=== PATIENT | female | born 1955 | race Caucasian/White ===

== ENCOUNTER → 2024-08-31 13:11 | Outpatient (REF) | payer OTHER, SELFPAY | LOC: HWRAD 13:11 | PROVIDERS: ATTENDING PHYSICIAN Student in an Organized Health Care Education/Training Program | DX: M54.9 Dorsalgia, unspecified (principal) | CPT/HCPCS: 72074 ==

== ENCOUNTER → 2024-09-03 12:44 | Outpatient (REF) | payer OTHER, SELFPAY | LOC: HWRAD 12:44 | PROVIDERS: ATTENDING PHYSICIAN Student in an Organized Health Care Education/Training Program | DX: M79.661 Pain in right lower leg (principal) | CPT/HCPCS: 93970 ==

== ENCOUNTER 2024-09-29 09:44 | Emergency (ER) | payer OTHER, SELFPAY ==
[2024-09-29] VITALS (12 sets, daily range): BP systolic 137–181; BP diastolic 71–92; BMI 21.3
--- NOTE | 2024-09-29 09:57 | ED.GENMED ---
History of Present Illness
General
Chief Complaint: Change in Mental Status
Time Seen by Provider: 09/29/24 09:46
History of Present Illness
History of Present Illness:
Patient presents to the emergency department with altered mental status and headache. Patient is having issues with her memory and she is unsure how long her symptoms have been ongoing for. She apparently has been taking Macrobid for a UTI for the
past 3 days. Reportedly she has been seeing a new primary care doctor who have been adjusting her medications. She is on mirtazapine, propranolol, telmisartan. She complains of diffuse headache and nausea. She denies any abdominal pain or back
pain. Denies any chest pain or shortness of breath. Denies any focal weakness or numbness.
Past History
Past History
ED Past Medical History: None
ED Past Surgical History: None
Social History
Tobacco: Non-smoker
Alcohol: None
Drug: None
Personal:
Living: with family
Employment: Employed
Family History
Family History: Other (No family history of a hypercoagulable state); Negative Diabetes or Hypertension
Phy Exam
Physical Exam
Physical Exam:
GENERAL APPEARANCE: NAD, well developed/ well nourished
EYES lids/conjunctiva normal
EARS/NOSE/THROAT Mucous membranes moist, uvula midline without oral pharyngeal erythema, exudate or swelling
HEAD/NECK normocephalic atraumatic, neck is supple.
RESPIRATORY respiratory effort normal, speaks in full sentences, no accessory muscle use. Lungs clear to auscultation without rhonchi, wheezes, rales
CARDIAC Regular rate and rhythm, no edema.
ABDOMINAL Soft, ND/NT. No pulsatile masses on exam, rebound tenderness, Amaya sign or pain over Mcburney's point.
MUSCLES/EXTREMITIES No abnormal range of motion, no swelling.
SKIN Warm, pink and dry. No rashes
NEUROLOGICAL patient is awake and alert and oriented x 2. She is having issues with short-term memory loss. Speech is normal. 5 out of 5 strength in all extremities. Sensation intact to light touch throughout. Cranial nerves II through XII are
intact. No ataxia or dysmetria or nystagmus.
Course
Orders/Labs/Results
Orders:
Orders
09/29/24 09:53
Electrocardiogram (*1) Urgent
Reason for Study: Fatigue / Weakness
09/29/24 09:54
EKG- Treatment ONCE
Complete Blood Count/With Diff Urgent
Comprehensive Metabolic Panel Urgent
Troponin I Urgent
09/29/24 09:56
Troponin I Urgent
0.9% Sodium Chloride 1000 ml [Nss] 1,000 ml IV BOLUS
Ondansetron Injectable [Zofran] 4 mg IV NOW STA
09/29/24 09:57
CT Head W/o Iv Contrast Urgent
Comment:
Reason For Exam: altered mental status
Ondansetron Injectable [Zofran] 4 mg .ROUTE .STK-MED ONE
09/29/24 10:22
Metoclopramide [Reglan] 10 mg IV NOW STA
09/29/24 10:23
Metoclopramide [Reglan] 10 mg .ROUTE .STK-MED ONE
09/29/24 10:32
Lorazepam [Ativan] 2 mg .ROUTE .STK-MED ONE
09/29/24 10:34
Lorazepam [Ativan] 2 mg IV NOW STA
09/29/24 10:45
Nicardipine 40 mg/200 ml [Cardene] 40 mg in 200 ml IV PER PROTOCOL
Initial dose in mg/hr, then titrate:: 5
Titrate to keep:: SBP 140 - 160 mmHg
Titrate by mg/hr:: 2.5 mg/hr
Frequency of titrations (minutes):: 5-15 minutes
Maximum dose in mg/hr:: 15
Begin to taper infusion when:: Remained at goal for 2hrs
Taper by mg/hr:: 2.5 mg/hr
Frequency of taper (minutes) if patient maintains goal:: every 15-30 minutes
Taper to off?: Yes
If infusion off & no longer maintaining goal:: Contact Provider
09/29/24 10:50
Type+Screen Urgent
PTT Urgent
Prothrombin Time Urgent
Urinalysis Reflex To Culture Urgent
Date Specimen was Collected: 09/29/24
Time Specimen was Collected: 10:49
Abnormal Lab Results
09/29/24
09:54
RBC 5.43 H 10^6/uL
(4.20-5.40)
Hgb 16.1 H g/dL
(12.0-16.0)
Hct 47.5 H %
(37.0-47.0)
MPV 10.7 H fL
(7.4-10.4)
Absolute Neuts (auto) 7.1 H 10^3/uL
(1.4-6.5)
Absolute Lymphs (auto) 1.0 L 10^3/uL
(1.2-3.4)
Neutrophils % 83.5 H %
(42.2-75.2)
Lymphocytes % 11.5 L %
(20.5-51.1)
BUN 19 H mg/dl
(7-17)
Glucose 131 H mg/dl
(70-99)
ALT 41 H U/L
(0-35)
Alkaline Phosphatase 142 H U/L
(38-126)
09/29/24 09:54
09/29/24 09:54
Vital Signs
Initial and Last Documented VS:
Initial Vital Signs
Temp Pulse Resp BP Pulse Ox
98.2 F 70 18 174/92 100
09/29/24 09:46 09/29/24 09:46 09/29/24 09:46 09/29/24 09:46 09/29/24 09:46
Last Documented Vital Signs
Temp Pulse Resp BP Pulse Ox
98.2 F 70 19 181/83 99
09/29/24 09:46 09/29/24 10:00 09/29/24 10:00 09/29/24 10:00 09/29/24 10:00
*Critical Care Note
Total Time (30-74mins, 75-104mins- exclusive of procedures): 40
Update Note
Update Note:
Patient with generalized tonic-clonic seizure lasting approximately 1 minute. She received 2 mg of IV Ativan. Bring patient over for CT head now
CT head with multiple foci of intracranial bleeding with subarachnoid extension
patients BP is 140s/70s
[place] transfer center called
attempted to call son MOISÉS and daughter Padmini? listed in chart. Unable to reach
ED Attending Note
ED Attending Note
ED Attending Note:
Patient presents with headache, altered mental status, UTI. It is unclear exactly how long her symptoms have been going on for. She has no focal neurologic deficits but is having issues with her memory and some confusion. Blood pressure noted to
be elevated with a history of hypertension. She is afebrile without any meningeal signs on exam. Plan for CT head, labs, urinalysis. Differentials broad and includes infectious, metabolic, traumatic etiologies
-
Portions of this chart may have been created with voice recognition software.� Occasional wrong word or��sound alike� substitutions may have occurred due to the inherent limitations of voice recognition software.
Discharge Plan
Departure
Prescriptions:
No Action
propranolol 10 mg Tablet
20 mg PO DAILY
telmisartan 40 mg Tablet
40 mg PO DAILY
mirtazapine 15 mg Tablet
15 mg PO HS
gabapentin 100 mg Capsule
100 mg PO BID
rosuvastatin 5 mg Tablet
5 mg PO DAILY
nitrofurantoin monohyd/m-cryst 100 mg Capsule
100 mg PO BID
Rx Instructions:
take for 7 days starting 09/25/24
acetaminophen [Tylenol Ex Str Rapid Release] 500 mg Tablet
1,000 mg PO Q6HPRN PRN (Reason: mild pain)
Referrals:
Love Aguirre MD [Primary Care Provider] -
Interventions
Interventions:
*Risk Screen - Suicide Last Done: 09/29/24 09:49
*General Assessment Last Done: 09/29/24 09:49
*Neglect/Abuse Screening Last Done: 09/29/24 09:49
*ED- Fall Risk Assessment Last Done: 09/29/24 09:49
*ED COVID-19 Vaccine History Last Done: 09/29/24 09:49
ED- Neurological Assessment Last Done: 09/29/24 09:51
Discharge Date and Time
Print Language: SPANISH
[2024-09-29] MEDS: ZOFRAN 4 MG IV (10:00)
[2024-09-29] MEDS: NSS 1000 IV (10:01)
[2024-09-29 10:06] LABS: % Basophils 1.2 % (0-2); % Immature Granulocytes 0.4 % (0-0.5); % Lymphocytes 11.5 % (20.5-51.1); % Monocytes 3.4 % (1.7-9.3); % Neutrophils 83.5 % (42.2-75.2); Absolute Basophils 0.1 10^3/uL (0-0.2); Absolute Monocytes 0.3 10^3/uL (0.1-0.6); Absolute Neutrophils 7.1 10^3/uL (1.4-6.5); Hematocrit 47.5 % (37.0-47.0); Hemoglobin 16.1 g/dL (12.0-16.0); Mean Corp Hgb Conc. 33.9 g/dL (33.0-37.0); Mean Corpuscular Hgb 29.7 pg (27.0-31.0); Mean Corpuscular Volume 87.5 fL (81.0-99.0); Mean Platelet Volume 10.7 fL (7.4-10.4); Nucleated Red Blood Cells % 0 %; Platelet Count 310 10^3/uL (130-400); Red Blood Cell Count 5.43 10^6/uL (4.20-5.40); White Blood Cell Count 8.4 10^3/uL (4.8-10.8)
[2024-09-29 10:15] LABS: ALT (SGPT) 41 U/L (0-35); AST (SGOT) 30 U/L (14-36); Albumin 4.3 g/dl (3.5-5.0); Alkaline Phosphatase 142 U/L (38-126); Blood Urea Nitrogen 19 mg/dl (7-17); Calcium 9.6 mg/dl (8.4-10.2); Carbon Dioxide 25 mmol/L (22-30); Chloride 106 mmol/L (98-107); Estimated Creatinine Clearance 65 ml/min; Glucose 131 mg/dl (70-99); Potassium 4.8 mmol/L (3.5-5.1); Sodium 139 mmol/L (135-145); Total Bilirubin 0.5 mg/dl (0.2-1.3); eGFR > 60.00
[2024-09-29] MEDS: REGLAN 10 MG IV (10:24)
[2024-09-29 10:26] LABS: Troponin I < 0.012 ng/ml
--- NOTE | 2024-09-29 10:30 | PTCARENOTE ---
RN in room with pt getting urine sample. Pt placed on bed hernandez. Pt states 'my head hurts. I think I'm going to throw up'. Pt starts seizing. RN called for help. 1 PCT and [address] room[address] Sotomayor bedside. Pt placed on Oxygen 6L
NC. Pt starts bleeding from mouth a small amount. Pt suctioned for small amount of salvia and blood. Ativan 2mg IV given. See AUG. Seizure lasted about 1 minute. Seizure pads placed on bed. Pt taken to CT Scan STAT with RN and PCT. VSS.
Called placed to family by . Will continue to monitor.
[2024-09-29] MEDS: ATIVAN 2 MG IV ×2 (10:34→13:25)
[2024-09-29 11:10] LABS: Urine Albumin Negative (Neg - Trace); Urine Bilirubin Negative (Negative); Urine Character Clear (Clear); Urine Color Yellow; Urine Glucose Negative (Negative); Urine Ketone Negative (Negative); Urine Leukocyte Negative (Negative); Urine Nitrite Negative (Negative); Urine Occult Blood Negative (Negative); Urine Urobilinogen Negative (Neg - 1+)
[2024-09-29 11:31] LABS: APTT 29.5 Sec (23.4-35.0); PT 13.7 Sec (11.4-14.6)
[2024-09-29] MEDS: KEPPRA 2000 MG IV (11:57)
--- NOTE | 2024-09-29 12:14 | PTCARENOTE ---
Daughter bedside. Updated by Dr. Sotomayor. Will continue to monitor.
--- NOTE | 2024-09-29 13:28 | PTCARENOTE ---
[facility] here to discharge pt. Flight RN's requested Ativan to be given. Pt is restless and pulling at her IV and heart monitor. VTO given from [facility] for Ativan 2mg IV. Med given. See AUG. Pt transported on flight stretcher.
== END 2024-09-29 13:36 | disposition short-term general hospital (02) ==
LOC: EMR 09:44
PROVIDERS: EMERGENCY PHYSICIAN Emergency Medicine; PRIMARYCARE PHYSICIAN Internal Medicine
DX: R51.9 Headache, unspecified (principal); R11.0 Nausea; N39.0 Urinary tract infection, site not specified; R41.82 Altered mental status, unspecified; Z79.2 Long term (current) use of antibiotics
CPT/HCPCS: 96374; 96375; 96376; 96361; 99284; 70450; 80053; 81003; 84484; 85025; 85610; 85730; 86850; 86900; 86901; 93005

== ENCOUNTER 2024-10-08 14:15 | Emergency (ER) | payer OTHER, SELFPAY ==
[2024-10-08] VITALS (8 sets, daily range): BP systolic 134–191; BP diastolic 45–121
--- NOTE | 2024-10-08 14:18 | CON.NEURO ---
Consultation
Order
Date of Consultation: 10/08/24
Requesting Provider: Odell Mcgovern DO
Reason for Consult: Stroke alert
Prehospital notification: 14:06
Neurology Consultation Note.
HPI: This is a 68-year-old woman who presented to [facility] on with right-sided weakness and encephalopathy.
According to EMS Alycia was reportedly 'fine' at 1:30 PM today when she was with physical therapist before she noted to be aphasic and starring to the left.
Mr. Judge was diagnosed with SAH on 09/29/2024. She reportedly had unrevealing workup at [facility]. The patient reportedly had her first seizure last Friday, which manifested as confusion without facial drooping. She was started on Keppra
750 mg twice daily(compliant).
ER VS: 165/81-185/121,, 70, afebrile
EKG:NSR, QTc Int : 453 ms
PDMP:none
Labs: 165/81-191/81, 70, afebrile.
CT head wo contrast(10/08/2024) Resolution of previously seen right-sided subarachnoid hemorrhage. Interval decrease of hemorrhage within the temporal horn of the left lateral ventricle. Interval decrease of left frontal subarachnoid hemorrhage.
There is small volume left parietal subarachnoid hemorrhage with relatively high attenuation. Given the interval between the studies and the attenuation, the findings are suspicious for recurrent bleeding with small volume acute left parietal
subarachnoid hemorrhage.
CT head wo contrast(09/29/2024) Multiple foci of parenchymal and subarachnoid hemorrhage bilaterally, left greater than right, as detailed above. Differential considerations include hemorrhagic metastasis, cerebral amyloid angiopathy, vasculitis,
aneurysmal hemorrhage, and hypertensive hemorrhage, among others.
PMH: SAH(09/29/2024), PA A-fib, HTN, DLP, IGT, CKD, COPD, NAILA, MDD, ETOh use DO
PSH:salpingectomy
SH: Lives alone with her daughter staying with her for the past few days., former smoker, retired repossession agent; history of alcohol use
All:NKDA
ROS: unable to obtain due to encephalopathy
NIH Stroke Scale
1A Level of Consciousness: 0/3
1B LOC Questions: 2/2
1C LOC Commands: 2/2
2 Best Gaze: 2/2
3 Visual: 2
4 Facial Palsy: 06/25
5A Motor Arm LEFT: 06/26
5B Motor Arm RIGHT: 08/24
6A Motor Leg LEFT: 0
6B Motor Leg RIGHT: 08/24
7 Limb Ataxia: 0/2
8 Sensory: 0/2
9 Best Language: 08/23
10 Dysarthria: 02
11 Extinction/Inattention: 0/2
Left gaze preference, right HP
Assessment and Plan:
I. L MCA syndrome
II. Encephalopathy (vascular,? epileptic)
III. HTN, DLP
IV. A-FIb?
-Continue Telemetry monitoring
-Seizure precautions
-stat CTA head/neck
-Please obtain medical records from [facility]
-Phenytoin 20 mg/kg load with close cardiac monitoring
-Continue Keppra 1 g twice daily
-Routine EEG
-Brain MRI without naila, urine tox
The case was discussed with patient's daughter
I personally reviewed all radiology and labs along with past medical records pertinent to current medical problems. Total time spent in patient care is 60 minutes.
Thank you for allowing us to participate in the care of this patient. We will continue to follow. Please do not hesitate to contact us with any questions or concerns.
Subjective/Objective
Subjective Data
Date of Service: October 08, 2024
Objective Data
Patient Allergies
No Known Allergies Allergy (Verified 09/29/24 09:49)
Medications
-
Home Medications
�Medication �Instructions �Recorded
acetaminophen 500 mg tablet 1,000 mg PO Q6HPRN PRN mild pain 09/29/24
gabapentin 100 mg capsule 100 mg PO BID 09/29/24
mirtazapine 15 mg tablet 15 mg PO HS 09/29/24
nitrofurantoin 100 mg PO BID 09/29/24
monohydrate/macrocrystals 100 mg
capsule
propranolol 10 mg tablet 20 mg PO DAILY 09/29/24
rosuvastatin 5 mg tablet 5 mg PO DAILY 09/29/24
telmisartan 40 mg tablet 40 mg PO DAILY 09/29/24
Vital Signs and Labs
-
Vital Signs and Labs:
Lab Results
10/08/24 14:35
Medications
-
Medications:
Generic Name Dose Route Start Last Admin
Trade Name Freq PRN Reason Stop Dose Admin
Phenytoin Sodium 1,000 mg/ 20 mls @ 30 mls/hr 10/08/24 14:40
Device IV 10/08/24 15:19
NOW STA
Sodium Chloride 0 flush 10/08/24 15:00
Sodium Chloride 0.9% (Flush) Syringe IV 11/05/24 14:59
PER PROTOCOL GEOVANI
Thiamine HCl 200 mg 10/08/24 15:00 10/08/24 14:42
Thiamine (100 Mg/Ml) 2 Ml Vial IV 11/05/24 14:59 200 mg
DAILY GEOVANI Administration
Home Medications
-
Home Medications
gabapentin 100 mg capsule 100 mg PO BID 09/29/24
mirtazapine 15 mg tablet 15 mg PO HS 09/29/24
rosuvastatin 5 mg tablet 5 mg PO DAILY 09/29/24
telmisartan 40 mg tablet 40 mg PO DAILY 09/29/24
amlodipine 5 mg tablet (Norvasc) 5 mg PO DAILY 10/08/24
carvedilol 25 mg tablet (Coreg) 25 mg PO BID 10/08/24
levetiracetam 750 mg tablet (Keppra) 750 mg PO BID 10/08/24
thiamine HCl (vitamin B1) 100 mg tablet 100 mg PO DAILY 10/08/24
--- NOTE | 2024-10-08 14:22 | ED.CVA ---
History of Present Illness
General
Chief Complaint: CVA/TIA Symptoms
Source: patient
Time Seen by Provider: 10/08/24 14:19
Onset of Stroke Symptoms
Onset of symptoms known: Yes
Date of onset of symptoms: 10/08/24
Time of onset of symptoms: 13:30
History of Present Illness
History of Present Illness:
68-year-old female presents the emergency room after being found to have sudden onset of right hemiparesis. Symptoms started 1:30 PM. Patient was recently seen here and transferred to [place] after having hemorrhagic stroke of some sort. Patient
unable to write any history.
Past History
Past History
ED Past Medical History: None
ED Past Surgical History: None
Social History
Tobacco: Non-smoker
Alcohol: None
Drug: None
Personal:
Living: with family
Employment: Employed
Family History
Family History: Other (No family history of a hypercoagulable state); Negative Diabetes or Hypertension
Phy Exam
Physical Exam
Physical Exam:
General: Awake, not following commands, right-sided neglect with left gaze preference
Vitals: unremarkable
Head: Atraumatic
Eyes: Pupils equal, EOMI
Throat: Airway intact, no exudates
Neck: Trachea midline
Lungs: Clear and equal b/l
Heart: Regular rate, no murmurs
Abd: Soft, Nontender, No pulsatile mass
Neuro: Right hemiparesis, gaze preference to the left, nonverbal, not consistently following commands.
Skin: Warm, dry, no rash
Extremities: pulses equal b/l, no edema
Scores
NIH Stroke Score
Level of Consciousness: 0 - Alert
LOC Questions: 0-Answers both correctly
LOC Commands: 1-Performs one correctly
Best Horizontal Gaze: 2-Total gaze palsy
Visual Ol[place]: 2=Full hemianopia
Facial Palsy: 3=Complete paralysis
Motor - Right Arm: 4=No movement
Motor - Left Arm: 0=No drift 10 seconds
Motor - Right Le-Partial vs. gravity
Motor - Left Le-No drift 5 seconds
Limb Ataxia: 0-Absent
Sensation: 2-Severe loss
Best Language: 3-Mute/global aphasia
Dysarthria: 0-Normal
Extinction and Inattention: 2-Total doc inattention
Total Score:: 21
Thrombolytic Contraindication
Inclusion and Exclusion criteria reviewed: Yes
Reasons for NON-Tx with Thrombolytics ABSOLUTE Exclusions: History of ICH
Course
Orders/Labs/Results
Orders:
Orders
10/08/24 14:23
CT HEAD STROKE ALERT W/o Cont Stat
Comment:
Reason For Exam: STROKE ALERT
10/08/24 14:24
EEG Routine Routine
Reason for Exam: Seizure
10/08/24 14:25
Electrocardiogram (*1) Stat
Reason for Study: Other
Other Reason for Exam: neuro symptoms
Cardiac Monitoring- Treatment ONCE
EKG- Treatment ONCE
10/08/24 14:35
Basic Metabolic Panel Urgent
Complete Blood Count/With Diff Urgent
10/08/24 14:40
Phenytoin Sodium [Dilantin] 1,000 mg Syringe [Syringe-Pump] 0 ml IV NOW
10/08/24 15:00
CT HEAD/NECK ANG STROKE ALERT Urgent
Comment:
Reason For Exam: r hemiparesis
Flush (0.9% Sodium Chloride) [Flush (Nss)] See Dose Instructions IV PER PROTOCOL
Thiamine Injection 200 mg IV DAILY
Abnormal Lab Results
10/08/24 10/08/24
14:30 14:35
MPV 10.9 H fL
(7.4-10.4)
Absolute Monos (auto) 1.0 H 10^3/uL
(0.1-0.6)
Monocytes % 11.9 H %
(1.7-9.3)
Glucose 117 H mg/dl
(70-99)
POC Glucose 105 H mg/dl
(70-99)
10/08/24 14:35
10/08/24 14:35
Vital Signs
Initial and Last Documented VS:
Initial Vital Signs
Temp Pulse Resp BP Pulse Ox
98.0 F 70 18 165/81 99
10/08/24 14:15 10/08/24 14:15 10/08/24 14:15 10/08/24 14:15 10/08/24 14:15
Last Documented Vital Signs
Temp Pulse Resp BP Pulse Ox
98.0 F 64 13 150/100 94
10/08/24 14:15 10/08/24 16:30 10/08/24 16:30 10/08/24 16:30 10/08/24 16:30
MDM/Problems Addressed
Differential Diagnosis Includes:
Intracranial hemorrhage, subarachnoid hemorrhage, ischemic stroke, seizure
MDM/Problems Addressed:
Patient presents with right hemiplegia. She arrived as a stroke alert. Initial head CT performed and does have abnormalities which are likely consistent with her previous bleed. There is some question that the increased attenuation today may
reflect rebleed. Neurology at the bedside when the patient arrived. Dr. Maldonado recommended 1 g of Dilantin for suspected seizure with postictal phase versus status. She also ordered an EEG. Patient's right hemiparesis continued to be dense. CT
angiogram ordered. Case discussed with neurology stroke fellow at [place]. She agreed with CT angio and will review the images and call back with the plan. CT shows an M2 occlusion. Patient accepted to [facility] as a level 0 transfer. Unclear if the
patient will truly be a candidate for intervention but they will accept her as a transfer determine that when she arrives. They had some difficulty viewing the images initially but I did ask the dairy technologist to resend them. Patient is mental status at
the time of my last evaluation was somewhat sleepy but arousable. She was raising her left arm. She was breathing without difficulty maintaining a normal pulse ox and her normal end-tidal CO2. T3 quickly packets patient to take to [facility]
*Radiology
Radiology exam reviewed: radiology read reviewed
*Pulse Oximetry
Patient hypoxic: no
*EKG
Interpreted by ED Provider?: Yes
Heart Rate: 72
Rate: normal
Rhythm: sinus
[place]: normal axis
Interval: normal interval
QRS Pattern: normal QRS
Ischemia: no ischemia
*Screen Printing Paster Interpretation
Rate: normal
Interpretation: normal
Rhythm: sinus
*Critical Care Note
Total Time (30-74mins, 75-104mins- exclusive of procedures): 60 min
comment:
Critical care statement: A total of 60 minutes of critical care time was provided for this patient. This includes management of unstable vital signs, evaluation of the patient at bedside, reviewing the patient's pertinent medical records, discussion
with consultants, review of old EKGs and review of pertinent medical records. This time with separate from time utilized to perform the aforementioned documented procedures
ED Attending Note
-
Portions of this chart may have been created with voice recognition software.� Occasional wrong word or��sound alike� substitutions may have occurred due to the inherent limitations of voice recognition software.
Discharge Plan
Departure
Patient Disposition: Acute Care Hospital
Date of Disposition: 10/08/24
Time of Disposition: 16:09
Condition: Critical
Discharge Problem:
Acute CVA (cerebrovascular accident)
Prescriptions:
No Action
telmisartan 40 mg Tablet
80 mg PO DAILY
mirtazapine 15 mg Tablet
15 mg PO HS
gabapentin 100 mg Capsule
100 mg PO BID
rosuvastatin 5 mg Tablet
5 mg PO DAILY
carvedilol [Coreg] 25 mg Tablet
25 mg PO BID
amlodipine [Norvasc] 5 mg Tablet
5 mg PO DAILY
levetiracetam [Keppra] 750 mg Tablet
750 mg PO BID
thiamine HCl (vitamin B1) 100 mg Tablet
100 mg PO DAILY
Referrals:
Love Aguirre MD [Family Provider] -
Hospital Transfer
Other hospital: [facility]
I certify that the patient requires transfer: Yes
Discussed case with accepting physician: Dr. Barreto
Reason for transfer: availability of service
Interventions
Interventions:
*Risk Screen - Suicide Last Done: 10/08/24 14:15
*General Assessment Last Done: 10/08/24 14:15
*Neglect/Abuse Screening Last Done: 10/08/24 14:15
*ED COVID-19 Vaccine History Last Done: 10/08/24 14:15
*Nursing Disposition Last Done: 10/08/24 16:58
ED- Pulmonary Assessment Last Done: 10/08/24 14:15
ED- Neurological Assessment Last Done: 10/08/24 16:25
ED- Cardiac Assessment Last Done: 10/08/24 14:15
ED Swallowing Screen Last Done: 10/08/24 14:15
Discharge Date and Time
Discharge Date/Time: 10/08/24 16:45
Print Language: ROMANIAN
[2024-10-08 14:31] LABS: Glucose - Point of Care 105 mg/dl (70-99)
[2024-10-08] MEDS: THIAMINE INJECTION 200 MG IV (14:42)
[2024-10-08 14:48] LABS: % Basophils 1.2 % (0-2); % Eosinophils 2.2 % (0-6); % Immature Granulocytes 0.5 % (0-0.5); % Lymphocytes 32.5 % (20.5-51.1); % Monocytes 11.9 % (1.7-9.3); % Neutrophils 51.7 % (42.2-75.2); Absolute Basophils 0.1 10^3/uL (0-0.2); Absolute Eosinophils 0.2 10^3/uL (0-0.7); Absolute Lymphocytes 2.8 10^3/uL (1.2-3.4); Absolute Neutrophils 4.4 10^3/uL (1.4-6.5); Hematocrit 40.4 % (37.0-47.0); Hemoglobin 13.9 g/dL (12.0-16.0); Mean Corp Hgb Conc. 34.4 g/dL (33.0-37.0); Mean Corpuscular Hgb 29.6 pg (27.0-31.0); Mean Corpuscular Volume 86.1 fL (81.0-99.0); Mean Platelet Volume 10.9 fL (7.4-10.4); Nucleated Red Blood Cells % 0 %; Platelet Count 306 10^3/uL (130-400); Red Blood Cell Count 4.69 10^6/uL (4.20-5.40); White Blood Cell Count 8.6 10^3/uL (4.8-10.8)
[2024-10-08 15:03] LABS: Blood Urea Nitrogen 17 mg/dl (7-17); Calcium 9.5 mg/dl (8.4-10.2); Carbon Dioxide 22 mmol/L (22-30); Chloride 106 mmol/L (98-107); Glucose 117 mg/dl (70-99); Potassium 4.4 mmol/L (3.5-5.1); Sodium 139 mmol/L (135-145); eGFR > 60.00
[2024-10-08] MEDS: DILANTIN 20 MG IV (15:30)
--- NOTE | 2024-10-08 18:01 | EEGC.RPT ---
Continuous EEG Report
Recording
Start Date of Data Reviewed: 10/08/24
End Date of Data Reviewed: 10/08/24
Report
TECHNICAL REMARKS:��This is a technically satisfactory eighteen channel record employing 21 disc electrodes applied according to a measured international 10-20 electrode placement system.��There were no significant technical difficulties.��The study
was done on a [employer] System.
CLINICAL HISTORY:�This is a 68-year-old woman with encephalopathy. �This study was requested to look for epileptiform activity.
MEDICATIONS: Keppra, gabapentin
STUDY DURATION: 22 min, 21 sec
REPORT: �At the onset of the EEG, the patient is awake. The background activity on the right consists of 9-9.5 Hz, persistent, posteriorly dominant, moderate in amplitude,a symmetric, and rhythmic activity.
that is reactive to eye-opening with admixed 10-15 microvolts delta activity.� Continuous left hemispheric as well as intermittent generalized slowing with frequent left frontotemporal sharps is seen. Stepwise intermittent photic stimulation (1-31
Hz) did not induce any additional abnormalities.� Hyperventilation was not performed.� Drowsiness is characterized by low amplitude mixed frequency activity, decreased eye blinking, and muscle artifact.
IMPRESSION: �This is an abnormal awake and drowsy EEG due to continuous left greater than right generalized slowing and frequent left frontal temporal sharps indicative of propensity to have seizures from the above area and encephalopathy
nonspecific in terms of etiology.
== END 2024-10-08 16:45 | disposition short-term general hospital (02) ==
LOC: EMR 14:15
PROVIDERS: EMERGENCY PHYSICIAN Emergency Medicine; FAMILY PHYSICIAN Internal Medicine; OTHER PHYSICIAN Psychiatry & Neurology Neurology
DX: I63.9 Cerebral infarction, unspecified (principal); Z87.891 Personal history of nicotine dependence
CPT/HCPCS: 99291; 96374; 96375; 70450; 70496; 70498; 80048; 82962; 85025; 93005; 95816; Q9967